=== PATIENT | male | born 1990 | race Two or more races ===

== ENCOUNTER 2023-10-09 07:47 | Emergency (ER) | payer OTHER ==
[~2023-10-09] VITALS: Ht 172.7 cm; Wt 82.1 kg
[2023-10-09] MEDS ORDERED: DEXAMETHASONE SODIUM PHOSPHATE 4 MG/ML VIAL IM STA (08:53)
[2023-10-09] MEDS ORDERED: CEFTRIAXONE SODIUM 2,000 MG VIAL IM STA (08:53)
[2023-10-09] MEDS ORDERED: DEXAMETHASONE SODIUM PHOSPHATE 4 MG/ML VIAL ONE (09:08)
[2023-10-09] MEDS ORDERED: CEFTRIAXONE SODIUM 2,000 MG VIAL ONE (09:09)
[2023-10-09] MEDS ORDERED: LIDOCAINE HCL 1% 10ML VIAL ONE (09:10)
== END 2023-10-09 09:24 | disposition home or self-care (01) ==
LOC: ER 07:48
DX: J03.90 Acute tonsillitis, unspecified (principal)

== ENCOUNTER 2024-04-30 08:40 | Emergency (ER) | payer OTHER ==
[~2024-04-30] VITALS: Ht 175.3 cm; Wt 68.0 kg
[2024-04-30 10:21] LABS: HEMATOCRIT 44.4 % (39.0-48.0); HEMOGLOBIN 14.3 g/dL (13-16.00); MEAN CELL VOLUME 85.9 fL (80.0-100.00); MEAN CORPUSCULAR HEMOGLOBIN 27.8 pg (27.00-32.0); MEAN CORPUSCULAR HGB CONC 32.3 g/dl (32.0-36.0); PLATELET COUNT 333 K/uL (150-450); RED BLOOD COUNT 5.17 M/uL (4.00-6.00); RED CELL DISTRIBUTION WIDTH 13.8 % (11.5-14.5)
[2024-04-30 11:10] LABS: ALBUMIN 4.1 gm/dL (3.4-5.0); BILIRUBIN TOTAL 0.51 mg/dL (0.3-1.2); CALCIUM 9.2 mg/dL (8.5-10.1); CREATININE SERUM 1.25 mg/dL (0.70-1.30); GFR 66.93; POTASSIUM 4.37 mEq/L (3.5-5.1); TOTAL PROTEIN 8.1 gm/dL (6.4-8.2)
[2024-04-30 11:26] LABS: URINE APPEARANCE Turbid; URINE BILIRRUBIN Negative (NEGATIVE); URINE BLOOD Large; URINE COLOR Dark Yellow; URINE GLUCOSE Negative (NEGATIVE); URINE KETONE Trace (NEGATIVE); URINE LEUKOCYTE Large; URINE NITRATE Negative
[2024-04-30 11:31] LABS: URINE BACTERIA 489.5 uL (0.0-1933); URINE EPITHELIAL CELLS 3.4 uL (0.0-38.8); URINE RBC 4638.5 uL (0.0-20.8)
[2024-04-30 11:43] LABS: URINE CAST 0.14 uL (0.0-1.40); URINE PROTEIN 100 (NEGATIVE); URINE WBC > 5548.3 uL (0.0-23.2)
[2024-04-30] MEDS ORDERED: CEFTRIAXONE SODIUM 1,000 MG VIAL ONE (12:46)
[2024-04-30] MEDS ORDERED: LIDOCAINE HCL 1% 10ML VIAL IJ STA (13:07)
[2024-04-30] MEDS ORDERED: CEFTRIAXONE SODIUM 1,000 MG VIAL IM STA (13:07)
== END 2024-04-30 13:15 | disposition home or self-care (01) ==
LOC: ER 08:42
PROVIDERS: Emergency Medicine
DX: R31.9 Hematuria, unspecified (principal); N39.0 Urinary tract infection, site not specified

== ENCOUNTER 2024-10-26 09:40 | Emergency (ER) | payer OTHER ==
[~2024-10-26] VITALS: Ht 172.7 cm; Wt 74.4 kg
[2024-10-26 12:11] LABS: BASO % 0.8 % (0.1-1.2); EOS # 0.23 (0.04-0.54); EOS % 4.8 % (0.7-7.0); LYMPH # 2.01 (1.18-3.74); LYMPH % 41.9 % (19.3-53.1); MEAN PLATELET VOLUME 10.60 fl (9.4-12.4); MONO # 0.61 (0.24-0.82); NEUT # 1.91 (1.56-6.13); NEUT % 39.8 % (34.0-71.1); RED CELL DISTRIBUTION WIDTH 12.9 % (11.6-14.4)
[2024-10-26 12:15] LABS: MONO % 12.7 % (4.7-12.5)
[2024-10-26 12:38] LABS: ALT/SGPT 19.0 U/L (12-78); AST/SGOT 26.0 U/L (15-37); BILIRUBIN TOTAL 0.36 mg/dL (0.3-1.2); BUN CREA RATIO 8.0 (7.0-25.0); CREATININE SERUM 1.13 mg/dL (0.70-1.30); GFR 75.2; GLOBULINA 4.2 G/DL (2.4-3.5); GLUCOSE FASTING 89.0 mg/dL (65-100); OSMOLALITY SERUM 278.0 MOSM/KG (275-295)
[2024-10-26 13:14] LABS: COVID-19 AG NEGATIVE (NEGATIVE)
[2024-10-26] MEDS ORDERED: IBUPROFEN600 MG PO (14:11)
[2024-10-26] MEDS ORDERED: KETOROLAC TROMETHAMINE 60 MG VIAL IM ONE (14:15)
[2024-10-26] MEDS ORDERED: DEXAMETHASONE SODIUM PHOSPHATE 4 MG/ML VIAL IM ONE (14:15)
== END 2024-10-26 14:36 | disposition home or self-care (01) ==
LOC: ER 09:40
PROVIDERS: Preventive Medicine Public Health & General Preventive Medicine
DX: B34.9 Viral infection, unspecified (principal); R51.9 Headache, unspecified; Z20.822 Contact with and (suspected) exposure to COVID-19